=== PATIENT | female | born 1995 | race Caucasian/White ===

== ENCOUNTER 2019-08-07 01:45 | Emergency (ER) | payer BC ==
[~2019-08-07] VITALS: Ht 165.1 cm; Wt 53.1 kg
--- NOTE | 2019-08-07 01:53 | NUR ---
PT BIB [id number] FOR C/O VERTIGO. PT WOKE UP AROUND 0118 TODAY WITH STIFF NECK AND DIZZINESS, FEELING LIKE THE ROOM IS SPINNING. PT STATES SHE HAS A BURNING SENATION ON HER FEET. NO VOMITING. AAOX4. NO SOB. NAD. CONNECTED TO MONITOR AWAITING MD SALAZAR.
[2019-08-07] MEDS ORDERED: LORAZEPAM 0.5 MG TABLET ONE (02:09)
--- NOTE | 2019-08-07 02:10 | NUR ---
URINE SENT TO LAB
[2019-08-07 02:18] LABS: BASOPHILS % (AUTO) 0.5 % (0.0-2.0); EOSINOPHILS % (AUTO) 4.5 % (0.0-6.0); HEMATOCRIT 41 % (33-45); HEMOGLOBIN 13.5 g/dL (11.5-14.8); LYMPHOCYTES # (AUTO) 2.1 /CMM (0.8-4.8); LYMPHOCYTES % (AUTO) 27.6 % (20.0-44.0); MEAN CORPUSCULAR HGB CONC 33 g/dl (31.0-36.0); MEAN CORPUSCULAR VOLUME 84 fL (82-100); MONOCYTES # (AUTO) 0.5 /CMM (0.1-1.30); NEUTROPHILS # (AUTO) 4.7 /CMM (1.8-8.9); NEUTROPHILS % (AUTO) 61.4 % (43.0-81.0); PLATELET COUNT (AUTO) 221 /CMM (150-450); RED BLOOD CELL COUNT(AUTO) 4.83 MIL/uL (4.0-5.2); WHITE BLOOD COUNT (AUTO) 7.6 K/uL (4.3-11.0)
[2019-08-07 02:21] LABS: CALCIUM, SERUM 8.9 mg/dL (8.5-10.1); CREATININE 0.7 mg/dL (0.6-1.3); POTASSIUM 4.1 mmol/L (3.5-5.1)
[2019-08-07] MEDS ORDERED: LORAZEPAM 0.5 MG TABLET PO ONE (02:30)
[2019-08-07 03:05] VITALS: BP 122/79
--- NOTE | 2019-08-07 03:05 | NUR ---
Patient discharged to home in stable condition. Written and verbal after care instructions given. Patient verbalizes understanding of instruction.
== END 2019-08-07 03:06 | disposition home or self-care (01) ==
LOC: ER 01:47
DX: R42 Dizziness and giddiness (principal)
CPT/HCPCS: 36415; 80048-TC; 84703-TC; 85025-TC